=== PATIENT | female | born 1990 | race Caucasian/White ===

== ENCOUNTER 2017-10-22 09:02 | Outpatient (CLI) | payer OTHER | END 2017-10-22 09:04 | disposition home or self-care (01) | LOC: RAD 09:02 | DX: J41.0 Simple chronic bronchitis (principal) ==

== ENCOUNTER 2017-10-26 15:58 | Outpatient (CLI) | payer OTHER | END 2017-10-26 15:59 | disposition home or self-care (01) | LOC: LAB 15:58 | DX: A00-B99 Certain infectious and parasitic diseases (principal) ==

== ENCOUNTER → 2020-11-28 15:00 | Outpatient (CLI) | payer OTHER | END | disposition home or self-care (01) | LOC: PPH VACUNA 15:00 | DX: Z23 Encounter for immunization (principal) ==

== ENCOUNTER 2021-05-15 00:05 | Emergency (ER) | payer OTHER ==
[~2021-05-15] VITALS: Ht 165.1 cm; Wt 63.5 kg
[2021-05-15] MEDS ORDERED: ESGIC 50-325-41 EACH PO (03:10)
== END 2021-05-15 03:19 ==
LOC: ER 00:05
DX: G43.909 Migraine, unspecified, not intractable, without status migrainosus (principal)

== ENCOUNTER → 2022-07-31 | Outpatient (CLI) | payer OTHER ==
[~2022-07-31] MED LIST: ESGIC 50-325-41 EACH PO
== END | disposition home or self-care (01) ==
LOC: OBS/DEL 10:39
PROVIDERS: ATTEND Obstetrics & Gynecology Gynecology
DX: O26.891 Other specified pregnancy related conditions, first trimester (principal); Z3A.01 Less than 8 weeks gestation of pregnancy

== ENCOUNTER 2022-08-13 15:22 | Inpatient (IN) | payer OTHER ==
[~2022-08-13] VITALS: Ht 165.1 cm; Wt 69.4 kg
== END 2022-08-15 12:03 | disposition home or self-care (01) | DRG 833 ==
LOC: LDR 15:22
PROVIDERS: ADMIT Obstetrics & Gynecology; ATTEND Obstetrics & Gynecology
PROC: 4A1HXCZ Monitoring of Products of Conception, Cardiac Rate, External Approach (ICD-10-PCS; principal; 2022-08-13)
PROC: BY4FZZZ Ultrasonography of Third Trimester, Single Fetus (ICD-10-PCS; 2022-08-13)
PROC: BU4CZZZ Ultrasonography of Uterus and Ovaries (ICD-10-PCS; 2022-08-13)
DX: O60.03 Preterm labor without delivery, third trimester (principal); Z3A.33 33 weeks gestation of pregnancy; Z20.822 Contact with and (suspected) exposure to COVID-19

== ENCOUNTER 2022-08-18 12:07 | Outpatient (CLI) | payer OTHER | END 2022-08-18 12:37 | disposition home or self-care (01) | LOC: NST 12:07 | PROVIDERS: ATTEND Obstetrics & Gynecology Maternal & Fetal Medicine | DX: Z34.83 Encounter for supervision of other normal pregnancy, third trimester (principal) ==

== ENCOUNTER 2022-08-25 06:29 | Outpatient (CLI) | payer OTHER ==
[2022-08-25] MEDS ORDERED: NIFEDIPINE ER30 M1 PO (06:56)
[2022-08-25] MEDS ORDERED: [UNRECOGNIZED DRUG - OTHER] PO (06:58)
[2022-08-25] MEDS ORDERED: ZITHROMAX200 MG PO (06:59)
[2022-08-25] MEDS ORDERED: INTEGRA PLUS C1 EACH PO (06:59)
[2022-08-25] MEDS ORDERED: ICAPS AREDS2 T1 EACH PO (07:00)
[2022-08-25] MEDS ORDERED: VITAMIN C250 MG PO (07:02)
== END 2022-08-25 16:44 | disposition home or self-care (01) ==
LOC: OBS/DEL 06:29
PROVIDERS: ATTEND Obstetrics & Gynecology Gynecology
DX: O98.513 Other viral diseases complicating pregnancy, third trimester (principal); U07.1 COVID-19; Z3A.35 35 weeks gestation of pregnancy; Z91.041 Radiographic dye allergy status

== ENCOUNTER 2022-09-07 10:36 | Inpatient (IN) | payer OTHER ==
[~2022-09-07] VITALS: Ht 167.6 cm; Wt 3.2 kg
[~2022-09-07 10:36] MED LIST changes: +ICAPS AREDS2 T1 EACH PO; +INTEGRA PLUS C1 EACH PO; +NIFEDIPINE ER30 M1 PO; +VITAMIN C250 MG PO; +ZITHROMAX200 MG PO; +[UNRECOGNIZED DRUG - OTHER] PO
[2022-09-22] MEDS ORDERED: INTEGRA F CAPS1 EAC1 PO (05:18)
[2022-09-22] MEDS ORDERED: PEPCID AC20 MG (05:19)
[2022-09-22] MEDS ORDERED: INTEGRA PLUS C1 EACH (05:19)
[2022-09-22] MEDS ORDERED: MIRALAX17 GM (05:20)
[2022-09-22] MEDS ORDERED: HYDROXYZINE PAM25 MG (16:09)
[2022-09-22] MEDS ORDERED: FOLIC ACID1 MG (16:10)
[2022-09-22] MEDS ORDERED: ONDANSETRON HCL4 MG (16:10)
[2022-09-22] MEDS ORDERED: DOXYLAMINE-PYR1 EACH (16:10)
[2022-09-22] MEDS ORDERED: PAXLOVID 300-11 EACH (16:10)
== END 2022-09-25 14:33 | disposition home or self-care (01) | DRG 788 ==
LOC: SURH 09-09 10:16 → OB/GYN 09-20 10:33 → LDR 09-22 04:05 → OB/GYN 09-22 04:05 → O/R 09-22 11:45 → OB/GYN 09-22 11:46
PROVIDERS: ADMIT Obstetrics & Gynecology Gynecology; ATTEND Obstetrics & Gynecology Gynecology
PROC: 4A1HXCZ Monitoring of Products of Conception, Cardiac Rate, External Approach (ICD-10-PCS; 2022-09-22)
PROC: 10D00Z1 Extraction of Products of Conception, Low, Open Approach (ICD-10-PCS; principal; 2022-09-22 11:00)
DX: O32.6XX0 Maternal care for compound presentation, not applicable or unspecified (principal); Z3A.39 39 weeks gestation of pregnancy; Z37.0 Single live birth; Z20.822 Contact with and (suspected) exposure to COVID-19

== ENCOUNTER 2023-02-06 19:14 | Emergency (ER) | payer OTHER ==
[~2023-02-06] VITALS: Ht 162.6 cm; Wt 59.0 kg
[~2023-02-06 19:14] MED LIST changes: +DOXYLAMINE-PYR1 EACH; +FOLIC ACID1 MG; +HYDROXYZINE PAM25 MG; +INTEGRA F CAPS1 EAC1 PO; +INTEGRA PLUS C1 EACH; +MIRALAX17 GM; +ONDANSETRON HCL4 MG; +PAXLOVID 300-11 EACH; +PEPCID AC20 MG
== END 2023-02-06 20:05 | disposition home or self-care (01) ==
LOC: ER 19:14
DX: S90.122A Contusion of left lesser toe(s) without damage to nail, initial encounter (principal); X58.XXXA Exposure to other specified factors, initial encounter; Y93.9 Activity, unspecified; Y92.9 Unspecified place or not applicable; Y99.9 Unspecified external cause status; Z91.041 Radiographic dye allergy status

== ENCOUNTER 2024-01-31 17:15 | Emergency (ER) | payer OTHER ==
[~2024-01-31] VITALS: Ht 165.1 cm; Wt 63.5 kg
[2024-01-31 17:21] VITALS: BP 131/92; O2SAT 100
[2024-01-31 18:11] LABS: HEMOGLOBIN 12.4 g/dL (12.0-15.00); MEAN CELL VOLUME 83.8 fL (80.00-100.00); MEAN CORPUSCULAR HEMOGLOBIN 28.1 pg (27.00-32.0); MEAN CORPUSCULAR HGB CONC 33.5 g/dl (32.0-36.0); PLATELET COUNT 211 K/uL (150-450); RED BLOOD COUNT 4.41 M/uL (4.00-6.00); RED CELL DISTRIBUTION WIDTH 13.4 % (11.5-14.5)
== END 2024-01-31 18:53 | disposition home or self-care (01) ==
LOC: ER 17:16
PROVIDERS: Emergency Medicine
DX: R07.9 Chest pain, unspecified (principal); Z91.041 Radiographic dye allergy status; Z88.2 Allergy status to sulfonamides

== ENCOUNTER 2024-03-20 03:29 | Emergency (ER) | payer OTHER ==
[~2024-03-20] VITALS: Ht 165.1 cm; Wt 63.5 kg
[2024-03-20] MEDS ORDERED: FAMOtidine 10 MG/ML (4ML VIAL) IV PUSH ONE (04:00)
[2024-03-20 04:15] LABS: HEMATOCRIT 39.4 % (36.0-45.00); HEMOGLOBIN 13.3 g/dL (12.0-15.00); MEAN CELL VOLUME 83.8 fL (80.00-100.00); MEAN CORPUSCULAR HEMOGLOBIN 28.3 pg (27.00-32.0); MEAN CORPUSCULAR HGB CONC 33.8 g/dl (32.0-36.0); PLATELET COUNT 251 K/uL (150-450)
[2024-03-20] MEDS ORDERED: KETOROLAC TROMETHAMINE 30 MG VIAL IV STA (04:17)
[2024-03-20 04:32] LABS: CALCIUM 9.1 mg/dL (8.5-10.1); CREATININE SERUM 0.78 mg/dL (0.55-1.02); GFR 85.59
[2024-03-20 04:49] LABS: TROPONIN I hs < 3.0 PG/ML (42.2-82.3); proBNP 58 pg/mL (0-51.9)
== END 2024-03-20 06:31 | disposition home or self-care (01) ==
LOC: ER 03:31
DX: R07.89 Other chest pain (principal); Z91.041 Radiographic dye allergy status; Z88.2 Allergy status to sulfonamides; Z88.8 Allergy status to other drugs, medicaments and biological substances

== ENCOUNTER 2024-03-22 08:41 | Emergency (ER) | payer OTHER ==
[~2024-03-22] VITALS: Ht 162.6 cm; Wt 63.5 kg
[2024-03-22 08:49] VITALS: BP 129/85; O2SAT 99
[2024-03-22] MEDS ORDERED: KETOROLAC TROMETHAMINE 60 MG VIAL IM ONE (09:30)
[2024-03-22] MEDS ORDERED: FAMOtidine 10 MG/ML (4ML VIAL) IV PUSH ONE (09:30)
[2024-03-22 09:57] LABS: HEMATOCRIT 38.3 % (36.0-45.00); HEMOGLOBIN 12.8 g/dL (12.0-15.00); MEAN CELL VOLUME 84.5 fL (80.00-100.00); MEAN CORPUSCULAR HEMOGLOBIN 28.2 pg (27.00-32.0); MEAN CORPUSCULAR HGB CONC 33.4 g/dl (32.0-36.0); PLATELET COUNT 229 K/uL (150-450); RED BLOOD COUNT 4.53 M/uL (4.00-6.00); RED CELL DISTRIBUTION WIDTH 15.4 % (11.5-14.5)
== END 2024-03-22 11:26 | disposition home or self-care (01) ==
LOC: ER 08:43
PROVIDERS: General Practice
DX: M94.0 Chondrocostal junction syndrome [Tietze] (principal); R07.9 Chest pain, unspecified; Z88.2 Allergy status to sulfonamides; Z91.041 Radiographic dye allergy status; F41.8 Other specified anxiety disorders

== ENCOUNTER 2025-01-22 20:36 | Emergency (ER) | payer OTHER ==
[~2025-01-22] VITALS: Ht 167.6 cm; Wt 90.7 kg
[2025-01-22] MEDS ORDERED: LEXAPRO20 MG (21:08)
[2025-01-22] MEDS ORDERED: BUSPAR (21:09)
== END 2025-01-22 22:35 | disposition home or self-care (01) ==
LOC: ER 20:36
DX: F41.0 Panic disorder [episodic paroxysmal anxiety] (principal); Z91.041 Radiographic dye allergy status; Z88.2 Allergy status to sulfonamides; R03.0 Elevated blood-pressure reading, without diagnosis of hypertension; F41.1 Generalized anxiety disorder